=== PATIENT | male | born 1995 | race Caucasian/White ===

== ENCOUNTER 2016-10-25 20:42 | Emergency (ER) | payer BC ==
[~2016-10-25] VITALS: Ht 175.3 cm; Wt 100.0 kg
[~2016-10-25 20:42] MED LIST: CLEO300C2 PO; IBUP-232 PO
[2016-10-25 20:46] VITALS: BP 149/89; PULSE 98; RESP 14; TEMP 98.9; O2SAT 97
--- NOTE | 2016-10-25 21:23 | PD ---
HPI Chief Complaint: Skin Problem Time Seen by Provider: 21:22 Travel History International Travel<30 days: No Contact w/Intl Traveler<30days: No Traveled to known affect area: No History of Present Illness HPI 21-year-old male presents to emergency department for evaluation of a potential exposure to poison daysi. Patient states last week he was pulling weeds when he may have been exposed. He had a rash on the left distal lower extremity. It was very painful and blistered but now it is beginning to resolve. It is more dry and crusted. It itches now. Patient denies any pain. No fever or chills. He has no other symptoms to report. History Past Medical Histgory Medical History: Denies Significant Hx Social History Alcohol Use: No Tobacco Use: No Allergies-Medications (Allergen,Severity, Reaction): Coded Allergies: No Known Allergies (Verified , 10/25/16) Reported Meds & Prescriptions Reported Meds & Active Scripts Active Reported Cleocin (Clindamycin HCl) 300 Mg Cap 300 Mg PO Q6 Motrin (Ibuprofen) 600 Mg Tab 600 Mg PO Q8 Review of Systems Except as stated in HPI: all other systems reviewed are Neg Physical Exam Narrative GENERAL: Well-nourished, well-developed patient. SKIN: Focused skin assessment warm/dry. Skin on the dorsum of the left foot and on the distal aspect of the left lower extremity is mildly excoriated. It is dry with mild erythema. It is not warm to touch. It is flaking and some places. There are no vesicular or pustular formation. HEAD: Normocephalic. EYES: No scleral icterus. No injection or drainage. NECK: Supple, trachea midline. No JVD or lymphadenopathy. CARDIOVASCULAR: Regular rate and rhythm without murmurs, gallops, or rubs. RESPIRATORY: Breath sounds equal bilaterally. No accessory muscle use. MUSCULOSKELETAL: No cyanosis, or edema. BACK: Nontender without obvious deformity. No CVA tenderness. Data Data Last Documented VS Vital Signs Date Time Temp Pulse Resp B/P Pulse Ox O2 Delivery O2 Flow Rate FiO2 10/25/16 20:46 98.9 98 14 149/89 97 Room Air MDM Medical Screen Exam Complete: Yes Emergency Medical Condition: No Differential Diagnosis Contact dermatitis versus folliculitis versus cellulitis Narrative Course 21-year-old male presents to emergency department for evaluation after being exposed to poison daysi. Patient does have what appears to be resolving poison daysi contact of the left distal lower extremity. Patient is medically cleared to undergo psychiatric screening for further evaluation and disposition. Mental health screening discussed with the patient. Psychiatric screen ordered. Primary Impression: Poison daysi dermatitis Additional Impression: Encounter for medical screening examination Condition: Stable Li Sweeney October 25, 2016 21:23
== END 2016-10-25 21:38 | disposition left against medical advice (07) ==
LOC: NEPK 20:42
DX: L23.7 Allergic contact dermatitis due to plants, except food (principal)
CPT/HCPCS: 99281